=== PATIENT | female | born 1980 | race Caucasian/White ===

== ENCOUNTER 2017-05-30 11:46 | Emergency (ER) | payer OTHER ==
[2017-05-30] MEDS ORDERED: ONDANSETRON PF 4 MG/2 ML VIAL. IV ONE (12:30)
[2017-05-30] MEDS ORDERED: IV NORMAL SALINE 1,000ML 1,000 ML IV SCH (12:30)
[2017-05-30 12:51] LABS: BASO # 0.1 x10^3/uL (0.0-0.2); BASO % 1 % (0-3); EOS # 0.2 x10^3/uL (0.0-0.7); EOS % 2 % (0-3); HEMATOCRIT 43.1 % (36.0-47.0); HEMOGLOBIN 14.6 g/dL (12.0-15.5); LYMPH # 3.4 x10^3/uL (1.0-4.8); LYMPH % 31 % (24-48); MEAN CORPUSCULAR HEMOGLOBIN 29 pg (25-35); MEAN CORPUSCULAR HGB CONC 34 g/dL (31-37); MEAN CORPUSCULAR VOLUME 85 fL (79-100); MONO # 0.7 x10^3/uL (0.0-1.1); MONO % 6 % (0-9); NEUT # 6.9 x10^3uL (1.8-7.7); NEUT % 61 % (31-73); PLATELET COUNT 332 x10^3/uL (140-400); RED BLOOD COUNT 5.06 x10^6/uL (3.50-5.40); RED CELL DISTRIBUTION WIDTH 14.6 % (11.5-14.5); WHITE BLOOD COUNT 11.2 x10^3/uL (4.0-11.0)
[2017-05-30 12:55] LABS: BILIRUBIN,URINE NEG (NEG); CLARITY,URINE HAZY; COLOR,URINE YELLOW; GLUCOSE,URINE NEG (NEG); NITRITE,URINE NEG (NEG); UROBILINOGEN,URINE 0.2 mg/dL (0.2 mg/dL)
[2017-05-30 12:56] LABS: AMORPHOUS SEDIMENT,UR PRESENT /HPF; BACTERIA,URINE FEW /HPF (0-FEW); RBC,URINE RARE /HPF (0-2); SQUAMOUS EPITHELIAL CELL,UR FEW /LPF; WBC,URINE RARE /HPF (0-4)
[2017-05-30 13:03] LABS: ALBUMIN 3.4 g/dL (3.4-5.0); CALCIUM 8.9 mg/dL (8.5-10.1); CREATININE 0.7 mg/dL (0.6-1.0); DIRECT BILIRUBIN 0.1 mg/dL (0.0-0.2); GFR 95.2; POTASSIUM 3.8 mmol/L (3.5-5.1); TOTAL BILIRUBIN 0.3 mg/dL (0.2-1.0); TOTAL PROTEIN 7.4 g/dL (6.4-8.2)
--- NOTE | 2017-05-30 13:36 | RAD ---
Obstetrical ultrasound, 05/30/2017: History: Abdominal pain Transabdominal and transvaginal scans were obtained. The uterus contains a single gestational sac. It contains a ringlike structure compatible with a yolk sac. The gestational sac diameter is approximately 1 cm yielding a gestational age of 5-6 weeks. A pole is not visible, which is not abnormal at this early stage. No subchorionic hemorrhage is evident. The ovaries are of normal size. No adnexal mass is seen. No significant free fluid is evident in the pelvis. IMPRESSION: Early intrauterine of 5-6 weeks gestational age.
--- NOTE | 2017-05-30 14:24 | PHYS DOC ---
General Chief Complaint: ABDOMINAL PAIN IN Stated Complaint: ABDOMINAL PAIN Time Seen by MD: 12:27 Source: patient Exam Limitations: no limitations Problems: History of Present Illness Initial Comments Patient is a 36-year-old 1 para 05 weeks gestation (last menstrual period April 22) female complaining of left lower quadrant/adnexal pain. Patient states that she's had some minor discomfort at the left adnexa for the past 4 days which suddenly worsened today. She complains of severe sudden onset sharp pain "which had meat doubled over and crying earlier today." She states that she has not had any obstetric evaluation yet and has not seen her PCP. She follows with a neurologist for chronic migraine headaches who randa labs and diagnosed her with infectious mononucleosis last week. She was taken off her migraine medications and has an obstetrics appointment scheduled for this week. She denies any vaginal discharge or bleeding no change in bowel or bladder habits and appetite remains intact. She has a sore throat but no dysphagia or dyspnea and denies any left upper quadrant pain. No sensation of bloating or excess flatus she and her spouse are very concerned she may have an ectopic . No pre-arrival treatment patient continues to smoke cigarettes and is not taking vitamins. Timing/Duration: getting worse, changing over time Severity: severe Modifying Factors: improves with other Associated Symptoms: other Allergies: Coded Allergies: Penicillins (Verified Allergy, Unknown, 05/30/17) Pertussis Vaccines (Verified Allergy, Unknown, 05/30/17) Past Medical History Medical History: other (endometriosis, migraines, polycystic ovarian syndrome) Surgical History: other (exploratory lap, left inguinal biopsy with chronic left inguinal seroma 8 years as a sequela) Social History Smoker: cigarettes Alcohol: occasionally Drugs: none Review of Systems Constitutional: denies chills, denies diaphoresis, denies fever, malaise EENTM: see HPI Respiratory: denies cough, denies shortness of breath, denies wheezing Cardiovascular: denies chest pain, denies palpitations, denies syncope Gastrointestinal: see HPI Genitourinary: denies dysuria, denies frequency, denies hematuria Musculoskeletal: denies back pain, denies joint swelling, denies neck pain Psychiatric/Neurological: see HPI Hematologic/Lymphatic: denies blood clots, denies easy bleeding, denies easy bruising Physical Exam General Appearance: moderate distress, obese Eyes: bilateral eye normal inspection, bilateral eye PERRL, bilateral eye EOMI Ear, Nose, Throat: hearing grossly normal, other (pharyngeal erythema with some exudate airway is widely patent) Neck: supple (tender reactive lymphadenopathy bilaterally trachea midline) Respiratory: normal breath sounds, no respiratory distress Cardiovascular: normal peripheral pulses, regular rate, rhythm Gastrointestinal: soft (nondistended, negative Lambert negative McBurney sounds normal exquisite left adnexal tenderness with guarding no rebound), other ( exam deferred) Back: no vertebral tenderness, CVA tenderness (R) Extremities: normal range of motion, non-tender, no calf tenderness, pelvis stable 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 PHYSICIAN: YOSVANY CASH DO REASON: 5wks gestation severe L adnexa pain, +mono PROCEDURE: OB <14 WKS W/TV Obstetrical ultrasound, 05/30/2017: History: Abdominal pain Transabdominal and transvaginal scans were obtained. The uterus contains a single gestational sac. It contains a ringlike structure compatible with a yolk sac. The gestational sac diameter is approximately 1 cm yielding a gestational age of 5-6 weeks. A pole is not visible, which is not abnormal at this early stage. No subchorionic hemorrhage is evident. The ovaries are of normal size. No adnexal mass is seen. No significant free fluid is evident in the pelvis. IMPRESSION: Early intrauterine of 5-6 weeks gestational age. DICTATED AND SIGNED BY: ASHLEY LOO MD DATE: 05/30/17 5854 CC: KAZ RAMON MD; YOSVANY CASH DO ~ Reassuring labs and urine studies. Patient states her discomfort has improved and is resting comfortably after studies are completed and I discussed the results. No apparent emergent condition from today's ED evaluation. I discussed signs and symptoms to monitor as well as indications for urgent return to the department. Patient's questions were answered I advised her to stop smoking and start taking vitamins she expressed agreement and understanding of treatment plan Departure Time of Disposition: 14:35 Disposition: 01 HOME, SELF-CARE Diagnosis: abdominal pain in , infectious mononucle Condition: GOOD Patient Instructions: ABCs of , Infectious Mononucleosis, [id number] , Medicines During Additional Instructions: Bed rest until follow-up with Dr. Ramon. vitamins daily. Please review the patient education materials given by ED staff regarding and medications that are improved during . Aggressive hydration with Gatorade and water. Follow-up with Dr. Ramon in 1-2 days for recheck. Follow-up with your [employer] June 07 as scheduled. Return to the ED with new or changing symptoms. YOSVANY CASH DO May 30, 2017 14:24
[2017-05-30 14:45] VITALS: BP 142/76
== END 2017-05-30 14:50 | disposition home or self-care (01) ==
LOC: ER 11:46
DX: O26.891 Other specified pregnancy related conditions, first trimester (principal); R10.2 Pelvic and perineal pain; O98.511 Other viral diseases complicating pregnancy, first trimester; O99.281 Endocrine, nutritional and metabolic diseases complicating pregnancy, first trimester; O99.331 Smoking (tobacco) complicating pregnancy, first trimester; E28.2 Polycystic ovarian syndrome; Z3A.08 8 weeks gestation of pregnancy; Z88.0 Allergy status to penicillin; Z88.8 Allergy status to other drugs, medicaments and biological substances
CPT/HCPCS: 36415; 76801; 76817; 80048; 80076; 81001; 84702; 85025; 96361; 96374; 99285; J2405; J7030